=== PATIENT | male | born 1995 | race Hispanic/Latino ===

== ENCOUNTER 2020-12-01 02:25 | Emergency (ER) | payer SELFPAY ==
[2020-12-01] MEDS ORDERED: Ondansetron PF 4 MG/2 ML Vial ONE (02:49)
[2020-12-01] MEDS ORDERED: Fentanyl 100 MCG/2 ML VIAL ONE (03:01)
[2020-12-01 03:36] LABS: Albumin 4.9 g/dL (3.5-5.0)
[2020-12-01 03:37] LABS: Calcium 9.6 mg/dL (7.8-10.44); Chloride 101 mmol/L (98-107); Sodium 137 mmol/L (136-145)
[2020-12-01 03:38] LABS: Globulin 3.5 g/dL (2.4-3.5); Glucose 127 mg/dL (70-105); Protein, Total 8.4 g/dL (6.0-8.3)
[2020-12-01 03:40] LABS: Anion Gap 15 mmol/L (10-20); Bilirubin, Total 0.6 mg/dL (0.2-1.2); Carbon Dioxide 25 mmol/L (22-29)
[2020-12-01 03:41] LABS: Alkaline Phosphatase 99 U/L (40-110)
[2020-12-01 03:42] LABS: Calc. Creatinine Clearance 0 mL/min (70-130)
[2020-12-01 03:43] LABS: AST (SGOT) 15 U/L (5-34); BUN (Urea Nitrogen) 10 mg/dL (8.9-20.6)
[2020-12-01 03:44] LABS: ALT (SGPT) 18 U/L (8-55); Lipase 17 U/L (8-78)
[2020-12-01 03:49] LABS: #Basophils 0.1 thou/uL (0.0-0.2); #Lymphocytes 1.4 thou/uL (1.20-3.40); #Monocytes 0.6 thou/uL (0.11-0.59); #Neutrophils 11.6 thou/uL (1.40-6.50); %Basophils 0.6 % (0.0-1.0); %Eosinophils 0.2 % (0.0-10.0); %Lymphocytes 10.1 % (21.0-51.0); %Monocytes 4.2 % (0.0-10.0); %Neutrophils 84.9 % (42.0-75.0); Hemoglobin 15.8 g/dL (14.0-18.0); Mean Corpuscular HGB CONC 33.5 g/dL (32.0-36.0); Mean Corpuscular Hemoglobin 29.7 pg (27.0-31.0); Mean Corpuscular Volume 88.7 fL (78.0-98.0); Platelet Count 302 thou/uL (130-400); RBC Distribution Width 11.6 % (11.5-14.5); Red Blood Cell (RBC) Count 5.33 mill/uL (4.70-6.10); White Blood Cell (WBC) Count 13.6 thou/uL (4.8-10.8)
[2020-12-01] MEDS ORDERED: Sucralfate 1 GM/10 ML UDCUP ONE (03:53)
[2020-12-01] MEDS ORDERED: Iopamidol-370 76% 500 ML 1 ML ONE (10:39)
== END 2020-12-01 04:40 | disposition home or self-care (01) ==
LOC: ERS 02:25
DX: K80.20 Calculus of gallbladder without cholecystitis without obstruction (principal); R11.2 Nausea with vomiting, unspecified; R10.11 Right upper quadrant pain
CPT/HCPCS: 74177; 80053; 83690; 85025; 96372; 96374; 96375; J0500; J2405; J3010; Q9967